=== PATIENT | female | born 1940 | race Caucasian/White ===

== ENCOUNTER 2019-01-28 13:19 | Outpatient (CLI) | payer MEDICARE, OTHER | END 2019-01-28 13:20 | disposition home or self-care (01) | LOC: DI 13:19 | PROVIDERS: ATTEND Physician Assistant | DX: R60.0 Localized edema (principal) | CPT/HCPCS: 93306 ==

== ENCOUNTER 2019-02-09 11:16 | Outpatient (CLI) | payer MEDICARE, OTHER ==
--- NOTE | 2019-02-09 11:45 | XRAY Report ---
Reason: DYSPNEA ON EXERTION Procedure Date: 02/09/2019 Accession Number: [id number] / [id number] Procedure: XR - Chest 2 View X-Ray CPT Code: 31884 FULL RESULT: EXAM: CHEST RADIOGRAPHY EXAM DATE: 02/09/2019 11:38 AM. CLINICAL HISTORY: Dyspnea on exertion. COMPARISON: XR CHEST PA AND LAT 09/19/2012 12:41 PM. TECHNIQUE: 2 views. FINDINGS: Lungs/Pleura: There are bilateral small pleural effusions, new. No pneumothorax. Visualized portions of the aerated lungs are clear with the exception of a posterior right lower lobe area of consolidation best seen on lateral view. A new 1.1 cm nodular opacity in the lower left lung near the cardiac apex potentially represents the patient's nipple. Mediastinum: The cardiomediastinal contour is stable including calcifications of the aortic arch. Other: Surgical clips in the left breast are again seen. IMPRESSION: New bilateral small pleural effusions with airspace disease at the posterior right lung base. Nodular opacity in the left lower lung is new, possibly the patient's nipple. This could be clarified on follow-up imaging with a nipple marker. RADIA
== END 2019-02-09 11:17 | disposition home or self-care (01) ==
LOC: DI 11:16
PROVIDERS: ATTEND Physician Assistant
DX: R06.09 Other forms of dyspnea (principal); J90 Pleural effusion, not elsewhere classified
CPT/HCPCS: 71046

== ENCOUNTER 2019-03-21 15:38 | Outpatient (CLI) | payer MEDICARE, OTHER ==
--- NOTE | 2019-03-22 08:19 | XRAY Report ---
Reason: COUGH Procedure Date: 03/21/2019 Accession Number: [id number] / [id number] Procedure: XR - Chest 2 View X-Ray CPT Code: 69265 FULL RESULT: EXAM: CHEST RADIOGRAPHY EXAM DATE: 03/21/2019 03:54 PM. CLINICAL HISTORY: Cough for 2 weeks. COMPARISON: CHEST 2 VIEW 02/09/2019 11:30 AM, ABDOMEN/PELVIS W/ 03/07/2015 3:57 PM. TECHNIQUE: 2 views. FINDINGS: Lungs/Pleura: Redemonstration of small bilateral pleural effusions right greater than left which may have increased slightly. Lung volumes have decreased compared to 02/09/2019. Interstitial markings are coarsened and diaphragms appear flattened through the effusion; potential obstructive lung disease underlying which is not definitely demonstrated in the lung bases on the [address] The previously measured left lower lobe lung nodule is identified as a breast nipple on today's exam. Surgical clips are again seen projecting over the left lung base, possibly prior lumpectomy. Aerated airspace demonstrates no lobar consolidation or overt pulmonary edema. Mediastinum: The cardiomediastinal silhouette is stable. Borderline cardiomegaly and calcified aortic arch. Other: None. IMPRESSION: Interval increase in bilateral pleural effusions. RADIA
== END 2019-03-21 15:39 | disposition home or self-care (01) ==
LOC: DI 15:38
PROVIDERS: ATTEND Physician Assistant
DX: J90 Pleural effusion, not elsewhere classified (principal)
CPT/HCPCS: 71046

== ENCOUNTER 2019-05-24 10:29 | Outpatient (CLI) | payer MEDICARE, OTHER ==
[~2019-05-24 10:29] MED LIST: BUFFERED LIDOCAINE 10 ML SYRINGE ONE
[2019-05-24] MEDS ORDERED: BUFFERED LIDOCAINE 10 ML SYRINGE IU ONE (14:44)
--- NOTE | 2019-06-03 08:40 | Ultrasound Report ---
Reason: OTHER ASCITES Procedure Date: 05/24/2019 Accession Number: [id number] / [id number] Procedure: US - Abdominal Paracentesis CPT Code: FULL RESULT: EXAM: ULTRASOUND-GUIDED PARACENTESIS EXAM DATE: 05/24/2019 10:34 AM. CLINICAL HISTORY: Other ascites. COMPARISON: None. TECHNIQUE: Risks, benefits, and alternatives to the procedure were discussed with the patient. All questions answered. Written and verbal consent obtained. Patient was placed in the supine position and the skin overlying the ascites marked with sonographic guidance. The skin was sterilely prepped and draped, and 1% buffered lidocaine was used for local anesthesia. An 18-gauge Angiocath was advanced into the peritoneal ascites and fluid aspirated. Upon completion, the catheter was removed. FINDINGS: A total of 3.2 L of fluid was removed without immediate complication. Patient tolerated procedure well. IMPRESSION: Ultrasound-guided paracentesis without immediate complications. RADIA
== END 2019-05-24 10:30 | disposition home or self-care (01) ==
LOC: DI 10:29
PROVIDERS: ATTEND Nurse Practitioner
DX: R18.8 Other ascites (principal)
CPT/HCPCS: 49083

== ENCOUNTER 2019-06-07 12:03 | Outpatient (CLI) | payer MEDICARE, OTHER ==
[2019-06-07] MEDS ORDERED: BUFFERED LIDOCAINE 10 ML SYRINGE ONE (12:32)
[2019-06-07] MEDS ORDERED: BUFFERED LIDOCAINE 10 ML SYRINGE IU ONE (15:39)
--- NOTE | 2019-06-07 16:41 | Ultrasound Report ---
Reason: OTHER ASCITES Procedure Date: 06/07/2019 Accession Number: [id number] / [id number] Procedure: US - Abdominal Paracentesis CPT Code: FULL RESULT: EXAM: ULTRASOUND-GUIDED PARACENTESIS EXAM DATE: 06/07/2019 02:08 PM. CLINICAL HISTORY: Ascites, history of hepatitis C and liver cancer. COMPARISON: ABDOMINAL PARACENTESIS 05/24/2019 10:34 AM. TECHNIQUE: Risks, benefits, and alternatives to the procedure were discussed with the patient. All questions answered. Written and verbal consent obtained. Patient was placed in the supine position and the skin overlying the left lower quadrant ascites marked with sonographic guidance. The skin was sterilely prepped and draped, and 1% buffered lidocaine was used for local anesthesia. An 18-gauge Dfap-X-Eljqdfnw Catheter was advanced into the peritoneal ascites and fluid aspirated. Upon completion, the catheter was removed. FINDINGS: A total of 3 L of fluid was removed without immediate complication. Patient tolerated procedure well. IMPRESSION: Ultrasound-guided paracentesis without immediate complications. RADIA
== END 2019-06-07 12:04 | disposition home or self-care (01) ==
LOC: DI 12:03
PROVIDERS: ATTEND Nurse Practitioner
DX: R18.8 Other ascites (principal)
CPT/HCPCS: 49083

== ENCOUNTER 2019-06-21 11:06 | Outpatient (CLI) | payer MEDICARE, OTHER ==
[2019-06-21 11:41] LABS: CALCIUM 9.9 mg/dL (8.5-10.3)
[2019-06-21] MEDS ORDERED: BUFFERED LIDOCAINE 10 ML SYRINGE IU ONE (15:29)
--- NOTE | 2019-06-22 10:21 | Ultrasound Report ---
Reason: OTHER ASCITES Procedure Date: 06/21/2019 Accession Number: [id number] / [id number] Procedure: US - Abdominal Paracentesis CPT Code: Final Report FULL RESULT: EXAM: ULTRASOUND-GUIDED PARACENTESIS EXAM DATE: 06/21/2019 01:20 PM. CLINICAL HISTORY: Ascites. COMPARISON: ABDOMINAL PARACENTESIS 06/07/2019 12:36 PM. TECHNIQUE: Risks, benefits, and alternatives to the procedure were discussed with the patient. All questions answered. Written and verbal consent obtained. Patient was placed in the supine position and the skin overlying the ascites marked with sonographic guidance. The skin was sterilely prepped and draped, and 1% buffered lidocaine was used for local anesthesia. A 6-Fijian drainer was advanced into the peritoneal ascites and fluid aspirated. Upon completion, the catheter was removed. FINDINGS: A total of 4000 mL of fluid was removed without immediate complication. Patient tolerated procedure well. IMPRESSION: Ultrasound-guided paracentesis without immediate complications. RADIA
== END 2019-06-21 11:07 | disposition home or self-care (01) ==
LOC: DI 11:06
PROVIDERS: ATTEND Nurse Practitioner
DX: R18.8 Other ascites (principal)
CPT/HCPCS: 36415; 49083; 80048

== ENCOUNTER 2019-07-05 11:26 | Outpatient (CLI) | payer MEDICARE, OTHER ==
[2019-07-05] MEDS ORDERED: BUFFERED LIDOCAINE 10 ML SYRINGE ONE (12:09)
[2019-07-05 12:16] LABS: BASOPHILS % (AUTO) 0.6 %; EOSINOPHILS # (AUTO) 0.1 10^3/uL (0.0-0.7); EOSINOPHILS % (AUTO) 1.3 %; HGB - HEMOGLOBIN 9.2 g/dL (12.0-16.0); LYMPHOCYTES # (AUTO) 0.4 10^3/uL (1.5-3.5); LYMPHOCYTES % (AUTO) 5.7 %; MEAN CORPUSCULAR HEMOGLOBIN 39.3 pg (27.0-31.0); MEAN CORPUSCULAR HGB CONC 33.9 g/dL (32.0-36.0); MEAN CORPUSCULAR VOLUME 115.8 fL (81.0-99.0); MEAN PLATELET VOLUME 11.4 fL (7.9-10.8); MONOCYTES # (AUTO) 0.8 10^3/uL (0.0-1.0); MONOCYTES % (AUTO) 11.4 %; NEUTROPHILS # (AUTO) 5.6 10^3/uL (1.5-6.6); NEUTROPHILS % (AUTO) 80.4 %; PLT - PLATELET COUNT 91 10^3/uL (130-450); RED BLOOD COUNT 2.34 10^6/uL (4.20-5.40); RED CELL DISTRIBUTION WIDTH 17.1 % (12.0-15.0)
[2019-07-05 12:24] LABS: INR 1.7 (0.8-1.2); PT - PROTHROMBIN TIME 18.3 secs (9.9-12.6)
[2019-07-05 12:31] LABS: PARTIAL THROMBOPLASTIN TIME 37.7 secs (24.9-33.3)
[2019-07-05 12:56] LABS: ALBUMIN 3.2 g/dL (3.2-5.5); ALBUMIN/GLOBULIN RATIO 0.8 (1.0-2.2); BILIRUBIN,TOTAL 12.6 mg/dL (0.2-1.0); CALCIUM 10.4 mg/dL (8.5-10.3); CREATININE 2.4 mg/dL (0.4-1.0)
[2019-07-05] MEDS ORDERED: BUFFERED LIDOCAINE 10 ML SYRINGE IU ONE (13:50)
--- NOTE | 2019-07-06 10:26 | Ultrasound Report ---
Reason: OTHER ASCITES Procedure Date: 07/05/2019 Accession Number: [id number] / [id number] Procedure: US - Abdominal Paracentesis CPT Code: Final Report FULL RESULT: EXAM: ULTRASOUND-GUIDED PARACENTESIS EXAM DATE: 07/05/2019 01:45 PM. CLINICAL HISTORY: Other ascites. COMPARISON: ABDOMINAL PARACENTESIS 06/21/2019 11:25 AM. TECHNIQUE: Risks, benefits, and alternatives to the procedure were discussed with the patient. All questions answered. Written and verbal consent obtained. Patient was placed in the supine position and the skin overlying the ascites marked with sonographic guidance. The skin was sterilely prepped and draped, and 1% buffered lidocaine was used for local anesthesia. A 6 Tamazight drainer catheter was advanced into the peritoneal ascites and fluid aspirated. Upon completion, the catheter was removed. FINDINGS: A total of 3100 mL of fluid was removed without immediate complication. Patient tolerated procedure well. IMPRESSION: Ultrasound-guided paracentesis without immediate complications. RADIA
== END 2019-07-05 11:27 | disposition home or self-care (01) ==
LOC: DI 11:26
PROVIDERS: ATTEND Nurse Practitioner
DX: K74.69 Other cirrhosis of liver (principal); R18.8 Other ascites
CPT/HCPCS: 36415; 49083; 80048; 80053; 85025; 85610; 85730

== ENCOUNTER 2019-07-11 12:09 | Outpatient (CLI) | payer MEDICARE, OTHER ==
[2019-07-11] MEDS ORDERED: BUFFERED LIDOCAINE 10 ML SYRINGE ONE (12:43)
--- NOTE | 2019-07-11 14:25 | Ultrasound Report ---
Reason: OTHER ASCITES Procedure Date: 07/11/2019 Accession Number: [id number] / [id number] Procedure: US - Abdominal Paracentesis CPT Code: Final Report FULL RESULT: EXAM: ULTRASOUND-GUIDED PARACENTESIS EXAM DATE: 07/11/2019 02:17 PM. CLINICAL HISTORY: Other ascites. COMPARISON: ABDOMINAL PARACENTESIS 07/05/2019 11:44 AM. TECHNIQUE: Risks, benefits, and alternatives to the procedure were discussed with the patient. All questions answered. Written and verbal consent obtained. Patient was placed in the supine position and the skin overlying the ascites marked with sonographic guidance. The skin was sterilely prepped and draped, and 1% buffered lidocaine was used for local anesthesia. A 4 Amharic needle catheter combination was advanced into the peritoneal ascites and fluid aspirated. Upon completion, the catheter was removed. FINDINGS: A total of 4000 mL of fluid was removed without immediate complication. Patient tolerated procedure well. IMPRESSION: Ultrasound-guided paracentesis without immediate complications. RADIA
[2019-07-11] MEDS ORDERED: BUFFERED LIDOCAINE 10 ML SYRINGE IU ONE (14:28)
== END 2019-07-11 12:10 | disposition home or self-care (01) ==
LOC: DI 12:09
PROVIDERS: ATTEND Nurse Practitioner
DX: R18.8 Other ascites (principal)
CPT/HCPCS: 49083

== ENCOUNTER 2019-07-19 11:39 | Outpatient (CLI) | payer MEDICARE, OTHER ==
[2019-07-19] MEDS ORDERED: BUFFERED LIDOCAINE 10 ML SYRINGE ONE (11:48)
[2019-07-19] MEDS ORDERED: BUFFERED LIDOCAINE 10 ML SYRINGE IU ONE (14:47)
--- NOTE | 2019-07-19 15:14 | Ultrasound Report ---
Reason: OTHER ASCITES Procedure Date: 07/19/2019 Accession Number: [id number] / [id number] Procedure: US - Abdominal Paracentesis CPT Code: Final Report FULL RESULT: EXAM: Abdominal Paracentesis DATE: 07/19/2019 1:35 PM CLINICAL HISTORY: Ascites. Therapeutic drainage requested. FINDINGS: Following obtaining informed consent, a suitable site in the patient's abdomen was selected with ultrasound. The skin was prepped and draped in the usual sterile fashion. The skin and soft tissues were anesthetized with buffered lidocaine. A SafeTcentesis catheter was inserted into the peritoneal cavity, and approximately 20 mL of fluid was removed without difficulty. Trace residual ascites present in the abdomen at the completion of the procedure. The patient tolerated the procedure well. No immediate complications. IMPRESSION: Successful ultrasound-guided paracentesis, yielding approximately 20 mL of fluid.
== END 2019-07-19 11:40 | disposition home or self-care (01) ==
LOC: DI 11:39
PROVIDERS: ATTEND Nurse Practitioner
DX: R18.8 Other ascites (principal)
CPT/HCPCS: 49083

== ENCOUNTER 2019-07-19 16:01 | Outpatient (CLI) | payer MEDICARE, OTHER ==
[2019-07-19 16:20] LABS: BASOPHILS % (AUTO) 0.6 %; EOSINOPHILS # (AUTO) 0.1 10^3/uL (0.0-0.7); EOSINOPHILS % (AUTO) 0.9 %; LYMPHOCYTES # (AUTO) 0.4 10^3/uL (1.5-3.5); LYMPHOCYTES % (AUTO) 6.7 %; MEAN CORPUSCULAR HEMOGLOBIN 37.6 pg (27.0-31.0); MEAN CORPUSCULAR HGB CONC 32.7 g/dL (32.0-36.0); MEAN CORPUSCULAR VOLUME 115.1 fL (81.0-99.0); MEAN PLATELET VOLUME 11.2 fL (7.9-10.8); MONOCYTES # (AUTO) 0.7 10^3/uL (0.0-1.0); MONOCYTES % (AUTO) 13.7 %; NEUTROPHILS # (AUTO) 4.2 10^3/uL (1.5-6.6); NEUTROPHILS % (AUTO) 77.4 %; PLT - PLATELET COUNT 61 10^3/uL (130-450); RED BLOOD COUNT 1.86 10^6/uL (4.20-5.40); RED CELL DISTRIBUTION WIDTH 17.4 % (12.0-15.0); WHITE BLOOD COUNT 5.4 x10^3/uL (4.8-10.8)
[2019-07-19 16:24] LABS: PT - PROTHROMBIN TIME 22.1 secs (9.9-12.6)
[2019-07-19 16:48] LABS: ALBUMIN/GLOBULIN RATIO 2.3 (1.0-2.2); BILIRUBIN,TOTAL 8.8 mg/dL (0.2-1.0); CALCIUM 10.6 mg/dL (8.5-10.3); CREATININE 2.4 mg/dL (0.4-1.0); TOTAL PROTEIN 7.2 g/dL (6.7-8.2)
[2019-07-19 19:27] LABS: PLATELET ESTIMATE, MANUAL DECREASED (<130,000) (NORMAL); PLATELET MORPHOLOGY NORMAL APPEARANCE (NORMAL)
== END 2019-07-19 16:02 | disposition home or self-care (01) ==
LOC: LAB 16:01
PROVIDERS: ATTEND Physician Assistant
DX: C22.0 Liver cell carcinoma (principal)
CPT/HCPCS: 36415; 80053; 85025; 85610

== ENCOUNTER 2019-07-20 11:11 | Emergency (ER) | payer MEDICARE, OTHER ==
[2019-07-20 12:04] LABS: BASOPHILS % (AUTO) 0.6 %; EOSINOPHILS # (AUTO) 0.1 10^3/uL (0.0-0.7); EOSINOPHILS % (AUTO) 1.4 %; HGB - HEMOGLOBIN 8.2 g/dL (12.0-16.0); LYMPHOCYTES # (AUTO) 0.4 10^3/uL (1.5-3.5); LYMPHOCYTES % (AUTO) 5.8 %; MEAN CORPUSCULAR HEMOGLOBIN 38.1 pg (27.0-31.0); MEAN CORPUSCULAR HGB CONC 33.5 g/dL (32.0-36.0); MEAN PLATELET VOLUME 12.1 fL (7.9-10.8); MONOCYTES # (AUTO) 0.7 10^3/uL (0.0-1.0); MONOCYTES % (AUTO) 10.7 %; NEUTROPHILS # (AUTO) 5.3 10^3/uL (1.5-6.6); PLT - PLATELET COUNT 75 10^3/uL (130-450); RED BLOOD COUNT 2.15 10^6/uL (4.20-5.40); RED CELL DISTRIBUTION WIDTH 17.5 % (12.0-15.0); WHITE BLOOD COUNT 6.6 x10^3/uL (4.8-10.8)
[2019-07-20 12:19] LABS: ALBUMIN 4.5 g/dL (3.2-5.5); ALBUMIN/GLOBULIN RATIO 1.7 (1.0-2.2); BILIRUBIN,TOTAL 10.8 mg/dL (0.2-1.0); CALCIUM 10.7 mg/dL (8.5-10.3); CREATININE 2.3 mg/dL (0.4-1.0); MAGNESIUM 2.4 mg/dL (1.7-2.8); TOTAL PROTEIN 7.1 g/dL (6.7-8.2)
--- NOTE | 2019-07-20 12:26 | ED Physician Documentation ---
History of Present Illness - Stated complaint Stated Complaint: WEAKNESS - Chief complaint Chief Complaint: General - History obtained from History obtained from: Patient, Family - History of Present Illness Timing: Other (She has longstanding cirrhosis from hepatitis C that she received work during a blood transfusion when she was 28. She gets weekly paracenteses. She had routine blood work done yesterday showing new anemia. She feels weak. She got her paracentesis yesterday and she usually feels better after the paracentesis from her perspective of weakness and shortness of breath, but still feels very weak and tired despite getting her paracentesis yesterday. She denies dark or tarry stools but says she does not really look at her stool.) Review of Systems Constitutional: reports: Fatigue. denies: Fever, Chills Nose: denies: Rhinorrhea / runny nose Cardiac: denies: Chest pain / pressure, Palpitations Respiratory: reports: Dyspnea. denies: Cough GI: reports: Constipation (mild). 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 Musculoskeletal: Fatigue Derm: None - Past Surgical History Past Surgical History: Yes Ortho: Hip replacement - Allergies Allergies/Adverse Reactions: Allergies Allergy/AdvReac Type Severity Reaction Status Date / Time No Known Drug Allergies Allergy Verified 07/20/19 11:20 - Social History Does the pt smoke?: No Smoking Status: Never smoker Does the pt drink ETOH?: No Does the pt have substance abuse?: No - Immunizations Immunizations are current?: Yes PD ED PE NORMAL - Vitals Vital signs reviewed: Yes - General General: Alert and oriented X 3, Other (Jaundiced thin appearing lady in no distress) - HEENT HEENT: PERRL, EOMI - Neck Neck: Supple, no meningeal sign, No bony TTP - Cardiac Cardiac: Other (2 out of 6 decrescendo systolic murmur heard best at the left upper sternal border) - Respiratory Respiratory: No respiratory distress, Clear bilaterally - Abdomen Abdomen: Other (Mild ascites, nontender) - Rectal Rectal: Other (Done with Jazmin KERN present and chaperoning, small amount of brown stool without obvious melena in the vault. Sent for guaiac.) - Back Back: No CVA TTP - Derm Derm: Normal color, Warm and dry - Neuro Neuro: Alert and oriented X 3, Normal speech Results - Vitals Vitals: Vital Signs - 24 hr 07/20/19 07/20/19 07/20/19 11:21 13:23 13:30 Temperature 36.6 C Heart Rate 80 78 78 Respiratory 20 18 18 Rate Blood Pressure 129/49 L 115/44 L 115/44 L O2 Saturation 100 100 100 07/20/19 13:55 Temperature 36.5 C Heart Rate 80 Respiratory 18 Rate Blood Pressure 110/45 L O2 Saturation Oxygen O2 Source Room air - Labs Labs: Microbiology 07/20/19 12:23 Occult Blood - Final Stool Laboratory Tests 07/20/19 07/20/19 07/20/19 11:53 11:53 11:53 WBC 6.6 RBC 2.15 L Hgb 8.2 L Hct 24.5 L MCV 114.0 H MCH 38.1 H MCHC 33.5 RDW 17.5 H Plt Count 75 L MPV 12.1 H Neut # (Auto) 5.3 Lymph # (Auto) 0.4 L [place] # (Auto) 0.7 Eos # (Auto) 0.1 Baso # (Auto) 0.0 Absolute Nucleated RBC 0.00 Nucleated RBC % 0.0 Sodium 131 L Potassium 6.2 H* Chloride 99 L Carbon Dioxide 18 L Anion Gap 14.0 H BUN 56 H Creatinine 2.3 H Estimated GFR (MDRD) 20 L Glucose 108 H Calcium 10.7 H Magnesium 2.4 Total Bilirubin 10.8 H AST 75 H ALT 27 Alkaline Phosphatase 105 B-Natriuretic Peptide 3895 H Total Protein 7.1 Albumin 4.5 Globulin 2.6 Albumin/Globulin Ratio 1.7 Lipase 50 Blood Type Antibody Screen Crossmatch IS Only 07/20/19 12:17 WBC RBC Hgb Hct MCV MCH MCHC RDW Plt Count MPV Neut # (Auto) Lymph # (Auto) [place] # (Auto) Eos # (Auto) Baso # (Auto) Absolute Nucleated RBC Nucleated RBC % Sodium Potassium Chloride Carbon Dioxide Anion Gap BUN Creatinine Estimated GFR (MDRD) Glucose Calcium Magnesium Total Bilirubin AST ALT Alkaline Phosphatase B-Natriuretic Peptide Total Protein Albumin Globulin Albumin/Globulin Ratio Lipase Blood Type O NEGATIVE Antibody Screen NEGATIVE Crossmatch IS Only See Detail PD MEDICAL DECISION MAKING - ED course ED course: This is an 78-year-old woman presents with symptomatic anemia in the setting of worsening cirrhosis and 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 I was called by her physician, Gema Osborne who also relayed the social situation and that she is trying to get her into hospice. We agreed since she is symptomatic from her anemia that we would give her 1 unit of blood and a dose of diuretics. Note she was in tolerated of furosemide in the past and so Bumex was given. This should help her hyponatremia, hyperkalemia, and symptomatic dyspnea from anemia. She will touch base with the patient tomorrow as she is still trying to get her into hospice. Departure - Departure Disposition: 01 Home, Self Care Clinical Impression: Hyperkalemia Anemia Qualifiers: Anemia type: unspecified type Qualified Code(s): D64.9 - Anemia, unspecified Dyspnea Qualifiers: Dyspnea type: shortness of breath Qualified Code(s): R06.02 - Shortness of breath Condition: Good Record reviewed to determine appropriate education?: Yes Instructions: Diet Low Potassium Dc, Hospice Comments: Today you were seen for symptomatic anemia related to your ongoing liver and s ubsequently renal disease. For this you were given 1 unit of blood. You also had a high potassium level, the diuretic should help with this. You should eat a low potassium diet, instructions are attached. Return anytime for new or worsening symptoms. Gema Osborne should be reaching out to you tomorrow to see how you are doing, she is encouraging you to consider hospice.
[2019-07-20] MEDS ORDERED: BUMETANIDE 1 MG/4 ML VIAL IVP STA (12:39)
[2019-07-20 15:59] VITALS: BP 109/51
== END 2019-07-20 16:45 | disposition home or self-care (01) ==
LOC: ED 11:11
DX: E87.5 Hyperkalemia (principal); E87.1 Hypo-osmolality and hyponatremia; D64.9 Anemia, unspecified; R06.02 Shortness of breath; K76.7 Hepatorenal syndrome; B19.20 Unspecified viral hepatitis C without hepatic coma; K74.69 Other cirrhosis of liver; I10 Essential (primary) hypertension; R01.1 Cardiac murmur, unspecified
CPT/HCPCS: 36415; 36430; 80053; 82272; 83690; 83735; 83880; 85025; 86850; 86900; 86901; 86920; 96374; 99284; 99285; P9016

== ENCOUNTER 2019-07-26 13:07 | Outpatient (CLI) | payer MEDICARE, OTHER ==
[2019-07-26] MEDS ORDERED: BUFFERED LIDOCAINE 10 ML SYRINGE IU ONE (14:44)
--- NOTE | 2019-07-27 08:51 | Ultrasound Report ---
Reason: OTHER ASCITES Procedure Date: 07/26/2019 Accession Number: [id number] / [id number] Procedure: US - Abdominal Paracentesis CPT Code: Final Report FULL RESULT: EXAM: ULTRASOUND-GUIDED PARACENTESIS EXAM DATE: 07/26/2019 02:49 PM. CLINICAL HISTORY: Ascites. Paracentesis. COMPARISON: ABDOMINAL PARACENTESIS 07/19/2019 11:37 AM. TECHNIQUE: Risks, benefits, and alternatives to the procedure were discussed with the patient. All questions answered. Written and verbal consent obtained. Patient was placed in the supine position and the skin overlying the ascites marked with sonographic guidance. The skin was sterilely prepped and draped, and 1% buffered lidocaine was used for local anesthesia. A 6 Singaporean drain or catheter was advanced into the peritoneal ascites and fluid aspirated. Upon completion, the catheter was removed. FINDINGS: A total of 3000 mL of fluid was removed without immediate complication. Patient tolerated procedure well. IMPRESSION: Ultrasound-guided paracentesis without immediate complications. RADIA
== END 2019-07-26 13:08 | disposition home or self-care (01) ==
LOC: DI 13:07
PROVIDERS: ATTEND Nurse Practitioner
DX: R18.8 Other ascites (principal)
CPT/HCPCS: 49083

== ENCOUNTER 2019-07-29 15:58 | Outpatient (CLI) | payer MEDICARE, OTHER | END 2019-07-29 15:59 | disposition critical access hospital (66) | LOC: EMS 15:58 | PROVIDERS: ATTEND Surgery | DX: R53.1 Weakness (principal); R41.0 Disorientation, unspecified; R19.7 Diarrhea, unspecified; R47.9 Unspecified speech disturbances; R03.1 Nonspecific low blood-pressure reading | CPT/HCPCS: A0425; A0427 ==

== ENCOUNTER 2019-07-29 16:10 | Observation (INO) | payer MEDICARE, OTHER ==
--- NOTE | 2019-07-29 16:22 | ED Physician Documentation ---
History of Present Illness - Stated complaint Stated Complaint: SOA/ WEAKNESS - History obtained from History obtained from: EMS (This is an 78-year-old woman who presents by ambulance. She has a history of cirrhosis from hepatitis C from a remote transfusion. She has been dwindling recently. See my note from last week. I spoke with her PCP Gema Osborne shortly after arrival, she wants her to be in hospice but supposedly the is a control freak and we will not allow her to be in hospice even though that is the patient's wishes. I guess she had a mild fall at home today and presents by ambulance. She is quite altered and basically cannot give any history. Reportedly had a paracentesis yesterday.) Review of Systems Unable to obtain: Confused PD PAST MEDICAL HISTORY - Past Medical History Cardiovascular: Hypertension Respiratory: Other Endocrine/Autoimmune: None GI: Hepatitis, Cirrhosis, Cholelithiasis REPROGRAPHICS TECHNICIAN: Breast cancer : None Musculoskeletal: Fatigue Derm: None - Past Surgical History Past Surgical History: Yes Ortho: Hip replacement - Allergies Allergies/Adverse Reactions: Allergies Allergy/AdvReac Type Severity Reaction Status Date / Time No Known Drug Allergies Allergy Verified 07/20/19 11:20 - Social History Does the pt smoke?: No Smoking Status: Never smoker Does the pt drink ETOH?: No Does the pt have substance abuse?: No - Immunizations Immunizations are current?: Yes PD ED PE NORMAL - Vitals Vital signs reviewed: Yes - General General: Other (She is somnolent, follows simple commands, oriented to person only. She is very jaundiced. Thin and frail.) - HEENT HEENT: PERRL, EOMI - Neck Neck: Supple, no meningeal sign, No bony TTP - Cardiac Cardiac: Other (Loud systolic murmur) - Respiratory Respiratory: Other (Diminished both bases right less than left) - Abdomen Abdomen: Other (Nontender but somewhat distended with ascites) - Back Back: No CVA TTP, No spinal TTP - Derm Derm: Other (Jaundiced) - Extremities Extremities: Other (Peripheral edema) - Neuro Neuro: Alert and oriented X 3, No motor deficit, No sensory deficit Eye Opening: Spontaneous Motor: Obeys Commands Verbal: Confused GCS Score: 14 Results - Vitals Vitals: Vital Signs - 24 hr 07/29/19 07/29/19 07/29/19 16:12 16:25 16:30 Temperature 33.0 C L 33.1 C L Heart Rate 87 86 Respiratory 26 H 28 H Rate Blood Pressure 99/60 99/60 O2 Saturation 100 100 07/29/19 07/29/19 07/29/19 16:32 16:49 17:00 Temperature 33.2 C L Heart Rate 84 84 Respiratory 33 H 29 H Rate Blood Pressure 96/46 L 88/48 L 71/29 L O2 Saturation 100 100 07/29/19 07/29/19 07/29/19 17:21 17:26 17:30 Temperature 33.2 C L 33.2 C L 33.2 C L Heart Rate 83 86 86 Respiratory 26 H 27 H 26 H Rate Blood Pressure 87/30 L 87/30 L 92/32 L O2 Saturation 100 93 96 07/29/19 07/29/19 17:45 17:58 Temperature 33.3 C L 33.4 C L Heart Rate 87 90 Respiratory 26 H 23 Rate Blood Pressure 96/34 L 110/37 L O2 Saturation 100 100 Oxygen O2 Source Room air - Labs Labs: Laboratory Tests 07/29/19 07/29/19 07/29/19 17:10 17:10 17:10 WBC 10.6 RBC 1.69 L Hgb 6.4 L* Hct 20.7 L MCV 122.5 H MCH 37.9 H MCHC 30.9 L RDW 19.4 H Plt Count 83 L MPV 12.2 H Neut # (Auto) 9.3 H Lymph # (Auto) 0.4 L [place] # (Auto) 0.7 Eos # (Auto) 0.0 Baso # (Auto) 0.0 Absolute Nucleated RBC 0.00 Nucleated RBC % 0.0 Manual Slide Review Indicated Platelet Estimate DECREASED (<130,000) Platelet Morphology NORMAL APPEARANCE RBC Morph Micro Appear 1+ SCHISTOCYTES PT 29.7 H INR 2.8 H Sodium 137 Potassium 5.9 H Chloride 105 Carbon Dioxide 9 L* Anion Gap 23.0 H BUN 80 H* Creatinine 2.9 H Estimated GFR (MDRD) 16 L Glucose 85 Lactic Acid Calcium 9.8 Total Bilirubin 16.7 H AST 73 H ALT 24 Alkaline Phosphatase 54 Ammonia Total Protein 5.3 L Albumin 3.0 L Globulin 2.3 Albumin/Globulin Ratio 1.3 Lipase 24 TSH 07/29/19 07/29/19 07/29/19 17:10 17:10 17:10 WBC RBC Hgb Hct MCV MCH MCHC RDW Plt Count MPV Neut # (Auto) Lymph # (Auto) [place] # (Auto) Eos # (Auto) Baso # (Auto) Absolute Nucleated RBC Nucleated RBC % Manual Slide Review Platelet Estimate Platelet Morphology RBC Morph Micro Appear PT INR Sodium Potassium Chloride Carbon Dioxide Anion Gap BUN Creatinine Estimated GFR (MDRD) Glucose Lactic Acid > 10.0 H* Calcium Total Bilirubin AST ALT Alkaline Phosphatase Ammonia 94.4 H* Total Protein Albumin Globulin Albumin/Globulin Ratio Lipase TSH 1.87 PD MEDICAL DECISION MAKING - ED course ED course: 78-year-old woman with end-stage cirrhosis presents critically ill with altered mental status, jaundice, hypotension. Also hypothermia. Spoke with Gema Dylon shortly after arrival, she wanted to put her in hospice and the patient was agreeable but I guess the was not. arrived shortly thereafter. We talked about goals of care, he does not seem ready to let go but understands that she is dying and wants to focus on comfort. As such I did not place a central line, we will not intubate. We will scale back the measures as well, blood was readied. She was on a little bit of pressors, spoke with Dr. Rice for admission at 6:15 PM. Given the futile nature of the diagnosis and 's preference for comfort care we will stop the pressors etc. Departure - Departure Disposition: ED Place in Observation Clinical Impression: Shock, Comfort measures only status Altered mental status Qualifiers: Altered mental status type: delirium Qualified Code(s): R41.0 - Disorientation, unspecified Condition: Critical
[2019-07-29] MEDS ORDERED: ALBUMIN 25% 12.5 GM/50 ML VIAL IV STA (17:02)
[2019-07-29 17:18] LABS: BASOPHILS % (AUTO) 0.2 %; EOSINOPHILS % (AUTO) 0.1 %; LYMPHOCYTES # (AUTO) 0.4 10^3/uL (1.5-3.5); LYMPHOCYTES % (AUTO) 3.7 %; MEAN CORPUSCULAR HEMOGLOBIN 37.9 pg (27.0-31.0); MEAN CORPUSCULAR HGB CONC 30.9 g/dL (32.0-36.0); MEAN CORPUSCULAR VOLUME 122.5 fL (81.0-99.0); MEAN PLATELET VOLUME 12.2 fL (7.9-10.8); MONOCYTES # (AUTO) 0.7 10^3/uL (0.0-1.0); MONOCYTES % (AUTO) 6.1 %; NEUTROPHILS # (AUTO) 9.3 10^3/uL (1.5-6.6); NEUTROPHILS % (AUTO) 87.5 %; PLT - PLATELET COUNT 83 10^3/uL (130-450); RED BLOOD COUNT 1.69 10^6/uL (4.20-5.40); RED CELL DISTRIBUTION WIDTH 19.4 % (12.0-15.0); WHITE BLOOD COUNT 10.6 x10^3/uL (4.8-10.8)
[2019-07-29 17:22] LABS: HGB - HEMOGLOBIN 6.4 g/dL (12.0-16.0)
[2019-07-29] MEDS ORDERED: PANTOPRAZOLE 40 MG VIAL IVP STA (17:23)
[2019-07-29 17:24] LABS: INR 2.8 (0.8-1.2); PT - PROTHROMBIN TIME 29.7 secs (9.9-12.6)
--- NOTE | 2019-07-29 17:54 | XRAY Report ---
Reason: Altered, abnormal breath sounds Procedure Date: 07/29/2019 Accession Number: [id number] / [id number] Procedure: XR - Chest 1 View X-Ray CPT Code: 35983 Final Report FULL RESULT: EXAM: CHEST RADIOGRAPHY EXAM DATE: 07/29/2019 05:31 PM. CLINICAL HISTORY: Altered, abnormal breath sounds. COMPARISON: CHEST 2 VIEW 03/21/2019 3:46 PM CHEST 2 VIEW 02/09/2019 11:30 AM. TECHNIQUE: 1 view. FINDINGS: Lungs/Pleura: Lung volumes are somewhat low. There is no evidence of lobar consolidation or effusion. There is no pneumothorax. Mediastinum: Borderline cardiomegaly. There is mild thoracic aortic calcification. Other: None. IMPRESSION: 1. Lung volumes are low. 2. No definite evidence of focal infiltrate. There is no effusion. 3. There is no pneumothorax. RADIA
[2019-07-29 18:03] LABS: PLATELET ESTIMATE, MANUAL DECREASED (<130,000) (NORMAL); PLATELET MORPHOLOGY NORMAL APPEARANCE (NORMAL)
[2019-07-29 18:07] LABS: ALBUMIN/GLOBULIN RATIO 1.3 (1.0-2.2); BILIRUBIN,TOTAL 16.7 mg/dL (0.2-1.0); CALCIUM 9.8 mg/dL (8.5-10.3); CREATININE 2.9 mg/dL (0.4-1.0); TOTAL PROTEIN 5.3 g/dL (6.7-8.2)
[2019-07-29] MEDS ORDERED: SODIUM CHLORIDE FLUSH 0.9% 10 ML SYRINGE IVP PRN (18:16)
[2019-07-29] MEDS ORDERED: GLYCOPYRROLATE 1 MG/5 ML VIAL SUBQ PRN (18:18)
[2019-07-29] MEDS ORDERED: ONDANSETRON ODT 4 MG TABLET TL PRN (18:18)
[2019-07-29] MEDS ORDERED: ATROPINE 1% OPHTH DROPS 2 ML SL PRN (18:18)
[2019-07-29] MEDS ORDERED: HALOPERIDOL 5 MG/ML VIAL IVP PRN (18:18)
[2019-07-29] MEDS ORDERED: MORPHINE SOL 10 MG/0.5 ML SYRINGE PO PRN (18:18)
[2019-07-29] MEDS ORDERED: ACETAMINOPHEN 650 MG SUPP PR PRN (18:18)
[2019-07-29] MEDS ORDERED: ONDANSETRON 4 MG/2 ML VIAL IVP PRN (18:18)
[2019-07-29 18:33] VITALS: BP 95/57
--- NOTE | 2019-07-29 18:54 | CT Report ---
Reason: altered Procedure Date: 07/29/2019 Accession Number: [id number] / [id number] Procedure: CT - HEAD WO CPT Code: Final Report FULL RESULT: EXAM: CT HEAD EXAM DATE: 07/29/2019 06:27 PM. CLINICAL HISTORY: 78-year-old female. Unwitnessed fall, found on the ground. Altered. COMPARISON: None. TECHNIQUE: Multiaxial CT images were obtained from the foramen magnum to the vertex. Reformats: Sagittal and coronal. IV contrast: None. In accordance with CT protocol optimization, one or more of the following dose reduction techniques were utilized for this exam: automated exposure control, adjustment of mA and/or KV based on patient size, or use of iterative reconstructive technique. FINDINGS: Parenchyma: No intraparenchymal hemorrhage. No evidence of mass, midline shift, or CT findings of acute infarction. Beck-white differentiation is distinct. Diffuse chronic microangiopathic white matter changes are evident. Extraaxial Spaces: Normal for age. No subdural or epidural collections identified. Ventricles: The ventricles and cortical sulci are enlarged, consistent with age-related tissue loss. Sinuses and orbits: Status post bilateral lens replacement surgery. Imaged paranasal sinuses, orbits, and mastoids show no significant abnormality. Bones: No evidence of fracture or calvarial defect. Other: Moderate atherosclerosis intracranial arteries. IMPRESSION: Generalized age-related cortical atrophic changes without evidence of acute intracranial abnormality. RADIA
--- NOTE | 2019-07-29 19:02 | HISTORY & PHYSICAL EXAMINATION ---
Chief Complaint - Chief Complaint Chief Complaint: Altered mental status after being found down on the floor today History of Present Illness - Admitted From Admitted From:: Home/ER - History Obtained From Records Reviewed: [facility] History obtained from: Dr. Jay and BRITTNEY Cooney Exam Limitations: her encephalopathy and weakness - History of Present Illness HPI Comment/Other: This is a truly unfortunate sad 78-year-old female who has been down on the floor for a few hours at home. She received a hip surgery in her home country [place] [facility] 30 years ago. 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 Was treated with interferon and ribavirin initially, and then eventually Harvoni. Disease progressed. She was then found to have hepatocellular carcinoma about 3 years ago. She has not responded to therapy and has been failing. In addition, her has stage IV lung cancer and is also dying. She has been requesting comfort care, even transition to hospice. However, her has been described as "a control freak". And he would not allow her to transition to hospice. She has been coming in to get paracentesis for comfort, and blood transfusions as needed. She fell on the floor today. In an effort to help her up he ended up falling on the floor as well. They lay on the floor together for several hours until he can finally get to a phone and call EMS. She was evaluated in the emergency room and was found to have a temperature of 33, blood pressure of 99/60, 26 respiratory rates. Her systolic is drifted down to the high 40s and low 50s. Levophed was started. However, her primary care provider is present at the bedside. Patient really does not want aggressive measures. She really wants comfort measures only. is now in the bed next to her being evaluated. Her potassium is 5.9, carbon dioxide 9, lactic acid greater than 10, BUN 80, creatinine 2.9. On July 20 her BUN is 56 and creatinine 2.3. Her ammonia level is 94. Hemoglobin is back down to 6.4. She had received 1 unit on July 20 and her hemoglobin had gone up to 8.2. Platelets are 83. She is barely responsive, History - Past Medical History Cardiovascular: reports: Hypertension Respiratory: reports: Other Endocrine/Autoimmune: reports: None GI: reports: Hepatitis, Cirrhosis, Cholelithiasis SECOND STEWARD: reports: Breast cancer : reports: None Musculoskeletal: reports: Fatigue Derm: reports: None MRSA Hx?: No - Past Surgical History Ortho: reports: Hip replacement - Family & Social History Living arrangement: At home Living Situation: With spouse/s.o. - Substance History Use: Uses substance without health or social issues: NONE Abuse: Recurrent use of substance despite neg consequences: NONE Dependence: Experiences withdrawal or developed tolerances: NONE - POLST Patient has POLST: No POLST Status: DNR Meds/Allgy - Allergies Allergies/Adverse Reactions: Allergies Allergy/AdvReac Type Severity Reaction Status Date / Time No Known Drug Allergies Allergy Verified 07/20/19 11:20 Review of Systems - Other Findings Other Findings: At this time this eva lady is moderately encephalopathic, barely responsive, unable to obtain review of systems Prior Level of Functionality: Barely able to dress herself or feed herself over the last couple of weeks. Is relying on her who is also dying of stage IV metastatic lung cancer for food, transportation and care Exam - Vital Signs Reviewed Vital Signs: Yes Vital Signs: Vital Signs x48h Temp Pulse Resp BP Pulse Ox 07/29/19 18:32 33.7 C L 93 22 95/57 L 100 07/29/19 17:58 33.4 C L 90 23 110/37 L 100 07/29/19 17:45 33.3 C L 87 26 H 96/34 L 100 07/29/19 17:30 33.2 C L 86 26 H 92/32 L 96 07/29/19 17:26 33.2 C L 86 27 H 87/30 L 93 07/29/19 17:21 33.2 C L 83 26 H 87/30 L 100 07/29/19 17:00 71/29 L 07/29/19 16:49 33.2 C L 84 29 H 88/48 L 100 07/29/19 16:32 84 33 H 96/46 L 100 07/29/19 16:30 33.1 C L 07/29/19 16:25 86 28 H 99/60 100 07/29/19 16:12 33.0 C L 87 26 H 99/60 100 - Physical Exam General Appearance: positive: Lethargic, Other (4 foot 11 inch female who is v jarett tiny, weighs 45.9 kg, responsive to my voice, with a faint, weak voice herself) Eyes Bilateral: positive: PERRL, EOMI, Other (bilateral scleral icterus) ENT: positive: Dry mucous membranes (very very dry) Neck: positive: No JVD. negative: Stiff neck Respiratory: positive: Chest non-tender, No respiratory distress, Other (Shallow slow unlabored respiration). negative: Wheezes, Rales, Rhonchi Cardiovascular: positive: Regular rate & rhythm, Systolic murmur. negative: Gallop/S4, Friction rub Abdomen: positive: Other (Distended and rounded, generalized tenderness, positive fluid wave, positive hepatomegaly. She winces with palpation but no rebound or guarding. Hypoactive bowel sounds.) Skin: positive: Dry, Other (Cold to touch) Extremities: positive: Non-tender, Other (Anasarca) Neurologic/Psychiatric: positive: Other (Oriented to person. Recognizes her pro vider. Recognizes that her is at the bedside. Barely able to respond. Barely able to lift her head. Severe generalized weakness but no focal deficits.) Conclusion/Plan - Problem List (1) Hepatocellular carcinoma Conclusion/Plan: Superimposed on hepatitis C cirrhosis, chronic anemia, ascites, hepatic encepha lopathy.She is hypotensive, hypothermic. Plan: We will honor her wishes. She wishes to be comfort measures only against her 's desires. He is reluctant but is currently in agreement with this. He is in the bed next to her being evaluated in the emergency room as well. (2) Anemia Conclusion/Plan: Initial type and cross was done. At this point, because of transition to comfort measures at her request, we will not transfuse. Qualifiers: Anemia type: unspecified type Qualified Code(s): D64.9 - Anemia, unspecified (3) Acute on chronic kidney failure Conclusion/Plan: Presumed hepatorenal failure. Again, this will be comfort measures only. No IV fluids. Qualifiers: Acute renal failure type: with acute tubular necrosis - Lab Results Lab results reviewed: Yes Fish Bones: 07/29/19 17:10 07/29/19 17:10 Core Measures - Anticipated LOS I expect patient to be DC'd or transferred within 96 hours.: Yes - DVT/VTE - Prophylaxis VTE/DVT Device ordered at admit?: Yes
[2019-07-29] MEDS ORDERED: MORPHINE 2 MG/ML CARPUJECT IVP PRN (20:48)
[2019-07-29] MEDS ORDERED: MORPHINE 4 MG/ML VIAL ONE (20:50)
--- NOTE | 2019-07-29 23:42 | Discharge Plan ---
Discharge Plan Problem Reviewed?: Yes Disposition: 20 Condition: Critical No Smoking: If you smoke, Please STOP! Call for help.
--- NOTE | 2019-07-29 23:47 | DISCHARGE SUMMARY ---
Discharge Summary Admit Date: 07/29/19 Discharge Date: 07/29/19 Discharging Provider: Keshawn Huff Primary Care Provider: Debbie Osborne Condition at Discharge: Critical Discharge Disposition: 20 - DIAGNOSES Admission Diagnoses: Parasellar carcinoma Anemia Acute on chronic kidney failure Discharge Diagnoses with Status of Each Condition: Hepatocellular carcinoma - worse. Circulatory shock - worse. Lactic acidosis - worse. Anemia - worse. Acute on chronic kidney failure - worse. Liver cirrhosis - worse. Hepatic encephalopathy - worse. Hypothermia - worse. - HPI History of Present Illness: H&P per Dr. Rice on 07/29/19: This is a truly unfortunate sad 78-year-old female who has been down on the floor for a few hours at home. She received a hip surgery in her home country of [facility] 30 years ago. 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 Was treated with interferon and ribavirin initially, and then eventually Harvoni. Disease progressed. She was then found to have hepatocellular carcinoma about 3 years ago. She has not responded to therapy and has been failing. In addition, her has stage IV lung cancer and is also dying. She has been requesting comfort care, even transition to hospice. However, her has been described as "a control freak". And he would not allow her to transition to hospice. She has been coming in to get paracentesis for comfort, and blood transfusions as needed. She fell on the floor today. In an effort to help her up he ended up falling on the floor as well. They lay on the floor together for several hours until he can finally get to a phone and call EMS. She was evaluated in the emergency room and was found to have a temperature of 33, blood pressure of 99/60, 26 respiratory rates. Her systolic is drifted down to the high 40s and low 50s. Levophed was started. However, her primary care provider is present at the bedside. Patient really does not want aggressive measures. She really wants comfort measures only. is now in the bed next to her being evaluated. Her potassium is 5.9, carbon dioxide 9, lactic acid greater than 10, BUN 80, creatinine 2.9. On July 20 her BUN is 56 and creatinine 2.3. Her ammonia level is 94. Hemoglobin is back down to 6.4. She had received 1 unit on July 20 and her hemoglobin had gone up to 8.2. Platelets are 83. She is barely responsive. - HOSPITAL COURSE Hospital Course: She was admitted for comfort measures given her critical illness. She was treated with morphine as needed as well as haldol, atropine drops, glycopyrrolate. Her family was present at bedside throughout the hospitalization and were updated when she at 2325 on July 29, 2019. - ALLERGIES Allergies/Adverse Reactions: Allergies Allergy/AdvReac Type Severity Reaction Status Date / Time No Known Drug Allergies Allergy Verified 07/20/19 11:20 - PHYSICAL EXAM AT DISCHARGE Eyes Bilateral: positive: Other (Pupils dilated and fixed. Not reactive to light.) Respiratory: positive: Other (No breath sounds.) Cardiovascular: positive: Other (No heart sounds present) Peripheral Pulses: positive: 0 - LABS Result Diagrams: 07/29/19 17:10 07/29/19 17:10
== END 2019-07-29 23:25 | disposition expired ==
LOC: EDUNIT# → EDBD → ED 16:10 → MS2 18:16
PROVIDERS: ADMIT Specialist; ATTEND Internal Medicine
DX: C22.0 Liver cell carcinoma (principal); K74.60 Unspecified cirrhosis of liver; B19.20 Unspecified viral hepatitis C without hepatic coma; R57.0 Cardiogenic shock; N17.0 Acute kidney failure with tubular necrosis; T68.XXXA Hypothermia, initial encounter; X31.XXXA Exposure to excessive natural cold, initial encounter; Y92.009 Unspecified place in unspecified non-institutional (private) residence as the place of occurrence of the external cause; D64.9 Anemia, unspecified; I12.9 Hypertensive chronic kidney disease with stage 1 through stage 4 chronic kidney disease, or unspecified chronic kidney disease; N18.3 Chronic kidney disease, stage 3 (moderate); E87.2 Acidosis; K72.90 Hepatic failure, unspecified without coma; R18.8 Other ascites; Z51.5 Encounter for palliative care; Z66 Do not resuscitate; Z91.81 History of falling; Z85.3 Personal history of malignant neoplasm of breast
CPT/HCPCS: 36415; 51701; 70450; 71045; 80053; 82140; 83605; 83690; 84443; 85025; 85610; 86850; 86870; 86900; 86901; 86920; 87040; 96365; 96368; 96375; 96376; 99285; A9270; G0378; J2270; P9047